=== PATIENT | male | born 1940 | race Caucasian/White ===

== ENCOUNTER 2021-05-13 10:02 | Emergency (ER) | payer MEDICARE, SELFPAY ==
[2021-05-13 10:37] VITALS: BP 106/59; PULSE 87; RESP 18; TEMP 36.6; O2SAT 100
--- NOTE | 2021-05-13 11:01 | ED.SKABFB ---
HPI - Skin/Abscess/Foreign Bdy General Chief complaint: Skin/Abscess/Foreign Body Stated complaint: rash Time Seen by Provider: 05/13/21 10:51 Source: patient and RN notes reviewed Mode of arrival: ambulatory Limitations: no limitations History of Present Illness HPI narrative: Patient presents today complaining of a pruritic rash to the right lower leg and bilateral lower arms x1.5 weeks. He has been taking Benadryl for itching and applying antibiotic ointment without relief. Denies any known exposures, change in household products, medications, foods, plant exposures. MD complaint: rash Related Data Home Medications Medication Instructions Recorded Confirmed aspirin [Adult Low Dose Aspirin] PO 05/13/21 gabapentin 05/13/21 05/13/21 loratadine [Claritin] mg 05/13/21 omeprazole 05/13/21 rosuvastatin mg 05/13/21 Allergies Allergy/AdvReac Type Severity Reaction Status Date / Time No Known Allergies Allergy Verified 05/13/21 10:35 Review of Systems Review of Systems: CONSTITUTIONAL: Denies body aches, fever, chills, or sweats. EYES: Denies visual changes, redness, or discharge. ENT: Denies rhinorrhea, congestion, sore throat, or otalgia. CARDIOVASCULAR: Denies chest pain, palpitations, or edema. RESPIRATORY: Denies cough or dyspnea. GASTROINTESTINAL: Denies abdominal pain, nausea, vomiting, or diarrhea. GENITOURINARY: Denies dysuria or hematuria. SKIN: Denies iitching, or wounds.+ Rash MUSCULOSKELETAL: Denies back pain, joint pain, or myalgia. NEUROLOGIC: Denies headache, numbness, tingling, or weakness. PSYCH: Denies depression or anxiety. FOR[facility]LY [facility], [facility] Past Medical History Medical History (Updated 05/13/21 @ 11:05 by Alba Cardona, [facility], ) Diabetes GERD (gastroesophageal reflux disease) Comments At time of signature, I have reviewed and agree with nursing past medical, surgical, social and family history unless otherwise noted. Please see nursing chart for further information. There is no relevant family history pertinent to the presenting complaint Exam Narrative: GENERAL: Well-appearing, well-nourished, and in no acute distress. HEAD: Normocephalic, atraumatic. EYES: EOMI. No redness or drainage. Conjunctivae normal. ENT: Mucous membranes pink and moist. NECK: Normal AROM. CHEST: No respiratory distress. EXTREMITIES: Normal range of motion. No edema. SKIN: Warm, dry. Capillary refill normal. Normal skin turgor. + Large patches of faintly pink maculopapular rash to the anterior bilateral lower arms and anterior lower leg. No crusting, induration, or signs of bacterial infection. NEURO: No focal deficits. Alert and oriented x3. Gait steady. PSYCH: Normal affect. No signs of depression or anxiety. Course Course Level of Care: Express Care Visit Vital Signs Vital signs: Vital Signs Temperature 97.9 F 05/13/21 10:37 Pulse Rate 87 05/13/21 10:37 Respiratory Rate 18 05/13/21 10:37 Blood Pressure 106/59 L 05/13/21 10:37 Pulse Oximetry 100 05/13/21 10:37 Temperature 97.9 F 05/13/21 10:37 Pulse Rate 87 05/13/21 10:37 Respiratory Rate 18 05/13/21 10:37 Blood Pressure 106/59 L 05/13/21 10:37 Pulse Oximetry 100 05/13/21 10:37 Reviewed MDM - Skin/Abscess/Foreign Bdy Differential Diagnosis Differential diagnosis: Likely viral exanthem, herpes zoster, cellulitis, eczema, impetigo and contact dermatitis Critical Care Time Critical Care Time Critical Care Time: No Discharge Plan Discharge Clinical Impression: Contact dermatitis Qualifiers: Contact dermatitis type: unspecified Contact dermatitis trigger: unspecified trigger Qualified Code(s): L25.9 - Unspecified contact dermatitis, unspecified cause Patient Disposition: Home, Self-Care Condition: Stable Instructions: Contact Dermatitis (DC) Additional Instructions: Please take the prednisone as prescribed for your rash. You may continue Benadryl for itching. Follow-up with your doctor next
== END 2021-05-13 11:19 | disposition home or self-care (01) ==
PROVIDERS: Emergency Provider Nurse Practitioner
DX: L25.9 Unspecified contact dermatitis, unspecified cause (principal); E11.9 Type 2 diabetes mellitus without complications; K21.9 Gastro-esophageal reflux disease without esophagitis
CPT/HCPCS: 99203; G0463